=== PATIENT | female | born 1950 | race Caucasian/White ===

== ENCOUNTER 2018-08-19 21:03 | Observation (INO) ==
--- NOTE | 2018-08-19 21:48 | Emergency Department Note ---
Disposition Clinical Impression: Lower extremity edema, Shortness of breath, Noncompliance with medication regimen Congestive heart failure Qualifiers: Heart failure type: unspecified Heart failure chronicity: chronic Qualified Code(s): I50.9 - Heart failure, unspecified Disposition: Admitted As Inpatient Referrals: NONE,PCP [Primary Care Provider] - Jeremiah Marino MD [Non-Partnered Physician] - Forms: ED Satisfaction Letter Time of Disposition: 00:18 SOB HPI - General Chief Complaint: ED Shortness of Breath/Dyspnea Stated Complaint: Bilat Leg Edema Time Seen by Provider: 08/19/18 21:14 Source: family Mode of arrival: wheelchair Limitations: no limitations Nursing Notes Reviewed: Yes Vital Signs Reviewed: Yes - History of Present Illness 68 yo female with past medical history of congestive heart failure and cirrhosis presents to the emergency department with 2 days of worsening leg swelling, abdominal distention and shortness of breath while lying flat. She states that she has not been taking her Lasix at home like she should secondary to difficulty in walking and making it to the bathroom on time. She believes she may be in a heart failure exacerbation at this time. She denies chest pain, shortness of breath while seated, abdominal pain, nausea and vomiting. She admits to weight gain over the past 2 days and thinks it is secondary to fluid. - Related Data Home Medications Medication Instructions Recorded Confirmed [place] Carbonate 300 mg PO DAILY 04/10/15 08/20/18 Citalopram [CeleXA] 20 mg PO DAILY 11/16/16 08/20/18 Spironolactone [Aldactone] 100 mg PO BID 11/16/16 08/20/18 Gabapentin [Neurontin] 300 mg PO HS 03/27/17 08/20/18 Lactulose 15 ml PO BID 03/27/17 08/20/18 Loratadine [Claritin] 10 mg PO DAILY 03/27/17 08/20/18 Omeprazole [PriLOSEC] 40 mg PO BID 03/27/17 08/20/18 Potassium Chloride [Klor-Con 10] 10 meq PO BID 03/27/17 08/20/18 Tramadol HCl [Ultram] 50 mg PO Q72H PRN 03/27/17 08/20/18 clonazePAM [Klonopin] 0.5 mg PO BID PRN 03/27/17 08/20/18 Pioglitazone [Actos] 45 mg PO DAILY 01/29/18 08/20/18 amLODIPine [Norvasc] 5 mg PO DAILY 01/29/18 08/20/18 Nitroglycerin [Nitrostat] 0.4 mg SL AD PRN 02/25/18 08/20/18 Furosemide [Lasix] 60 mg PO BID 05/28/18 08/20/18 Ondansetron ODT [Zofran ODT] 4 mg SL Q6HR PRN 08/20/18 08/20/18 Previous Rx's Medication Instructions Recorded Losartan [Cozaar] 25 mg PO DAILY tablet 02/28/18 Metoprolol [Lopressor] 12.5 mg PO BID tablet 02/28/18 Cyclobenzaprine [Flexeril] 10 mg PO TID PRN #21 tablet 05/28/18 Allergies Allergy/AdvReac Type Severity Reaction Status Date / Time fenofibrate [From Tricor] Allergy See Verified 08/19/18 21:05 Comments naproxen [From Naprosyn] Allergy See Verified 08/19/18 21:05 Comments Penicillins Allergy Hives Verified 08/19/18 21:05 adhesive tape AdvReac Blister Verified 08/19/18 21:05 codeine AdvReac See Verified 08/19/18 21:05 Comments morphine AdvReac Hallucinati Verified 08/19/18 21:05 ng All systems ED: reviewed and negative except as stated. Review of Systems: As Per HPI Constitutional: Denies: fever, chills, weakness Cardiovascular: Reports: dyspnea on exertion, orthopnea, edema. Denies: chest pain, palpitations, syncope Respiratory: Denies: cough, dyspnea, wheezes Gastrointestinal: Denies: abdominal pain, nausea, vomiting, diarrhea Genitourinary: Denies: dysuria, hematuria Musculoskeletal: Reports: back pain Integumentary: Denies: rash Neurological: Denies: headache, weakness, numbness, paresthesias Endocrine: Reports: fatigue Past Medical History - Past Medical History Attestation: Yes The following information was validated with the patient. Source: patient Medical history: Reports: coronary artery disease, diabetes, GERD, hyperlipidemia, hypertension, liver disease, other Surgical history: Reports: appendectomy, , cholecystectomy Psychiatric history: Reports: bipolar, depression BEAM WARPER history: Reports: no BEAM WARPER history - Social History Smoking Status: Former smoker Smokeless Tobacco Status: No Alcohol use: Reports: none Drug use: Reports: none Physical Exam - General Limitations: no limitations General appearance: alert, in no apparent distress - Head Head exam: atraumatic, normocephalic - Eye Eye exam: Present: normal appearance, PERRL, EOMI - ENT ENT exam: normal exam, normal oropharynx - Neck Neck exam: Present: normal inspection. Absent: tenderness - Chest Chest inspection: Present: normal inspection. Absent: tenderness, rash - Respiratory Respiratory exam: Present: normal lung sounds bilaterally - Cardiovascular Cardiovascular exam: Present: regular rate, normal rhythm - Abdominal Exam Abdominal exam: Present: soft, Non-Tender, distention. Absent: guarding, rebound, rigidity - Extremities Exam Extremities exam: Present: pedal edema (1+ pitting edema bilaterally) - Neurological Exam Neurological exam: Present: alert, oriented X3 - Psychiatric Psychiatric exam: Present: normal affect, normal mood - Skin Skin exam: Present: warm, dry, intact Course Vital Signs Temperature 98.2 F 08/19/18 21:05 Pulse Rate 86 08/19/18 21:05 Respiratory Rate 19 08/19/18 21:05 Blood Pressure 188/49 08/19/18 21:05 O2 Sat by Pulse Oximetry 97 08/19/18 21:05 Temperature 98.2 F 08/19/18 21:05 Pulse Rate 81 08/20/18 00:06 Respiratory Rate 22 08/20/18 00:06 Blood Pressure 161/69 08/20/18 00:06 O2 Sat by Pulse Oximetry 98 08/20/18 00:06 Oxygen Delivery Oxygen Delivery Room Air Shortness of Breath/Dyspnea - [facility] Narrative Medical decision making narrative: Patient presents with bilateral leg swelling, abdominal distention, weight gain and orthopnea that has been progressing over the past 2 days and is noncompliant with her Lasix at home. This is likely a CHF exacerbation and the patient will be evaluated with EKG, chest x-ray, basic lab work including troponin and BNP. Her vital signs are stable and her blood pressure is normotensive in the room. She will receive IV lasix for suspected CHF exacerbation with fluid overload. 2315 - pts cxr shows some vascular redistribution without signs of acute heart failure. Her lab work is wnl with a trop <0.03 and a BNP at 153. She has been satting well on room air but she desatted to 87% while walking. The pt will be admitted to the hospital for further diuresis and cardiology workup. - Medical Records Medical records reviewed: Yes I reviewed the patient's medical records. - Lab Data Lab results reviewed: Yes I reviewed the patient's lab results. Result diagrams: 08/19/18 21:52 08/19/18 21:52 Lab Results 08/19/18 08/19/18 08/19/18 Range/Units 21:52 21:52 21:52 WBC 4.2 L (4.3-11.1) K/mcL RBC 3.54 L (3.82-4.97) M/mcL Hgb 12.9 (11.5-15.4) g/dL Hct 37.7 (35.3-44.9) % MCV 106.5 H (83.0-100.0) fL MCH 36.4 H (28.0-33.3) pg MCHC 34.2 (31.6-35.5) g/dL RDW 13.0 (11.5-14.5) % Plt Count 102 L (140-400) K/mcL MPV 10.6 (9.4-12.4) fL Immature Gran % 0.2 (0-4) % Seg Neutrophils % 63.5 % Lymphocytes % 22.4 % Monocytes % 9.6 % Eosinophils % 3.8 % Basophils % 0.5 % Neutrophils # 2.6 (1.6-8.9) K/mcL Lymphocytes # 0.9 (0.6-4.6) K/mcL Monocytes # 0.4 (0.0-1.3) K/mcL Eosinophils # 0.2 (0.0-0.6) K/mcL Basophils # 0.0 (0.0-0.2) K/mcL Sodium 140 (136-145) mEq/L Potassium 3.8 (3.5-5.1) mEq/L Chloride 106 (98-107) mEq/L Carbon Dioxide 25 (23-29) mEq/L BUN 19 (8-23) mg/dL Creatinine 0.62 (0.60-1.20) mg/dL Est GFR ( Amer) > 60 (> 60) Est GFR (Non-Af Amer) > 60 (> 60) BUN/Creatinine Ratio 31 H (6-26) Glucose 136 H (70-105) mg/dL Calculated Osmolality 294 (280-300) Calcium 8.9 (8.6-10.3) mg/dL Total Bilirubin 0.7 (0.3-1.0) mg/dL AST 26 (13-39) Units/L ALT 15 (7-52) Units/L Alkaline Phosphatase 78 (34-104) Units/L Troponin I < 0.03 (< 0.04) ng/mL B-Natriuretic Peptide 153 H (Less than 100) pg/mL Serum Total Protein 7.5 (6.4-8.9) g/dL Albumin 3.3 L (3.5-5.7) g/dL Globulin 4.2 H (2.4-3.5) g/dL Albumin/Globulin Ratio 0.8 L (1.1-2.2) [place] (0.6-1.2) mEq/L // Range/Units 21:52 WBC (4.3-11.1) K/mcL RBC (3.82-4.97) M/mcL Hgb (11.5-15.4) g/dL Hct (35.3-44.9) % MCV (83.0-100.0) fL MCH (28.0-33.3) pg MCHC (31.6-35.5) g/dL RDW (11.5-14.5) % Plt Count (140-400) K/mcL MPV (9.4-12.4) fL Immature Gran % (0-4) % Seg Neutrophils % % Lymphocytes % % Monocytes % % Eosinophils % % Basophils % % Neutrophils # (1.6-8.9) K/mcL Lymphocytes # (0.6-4.6) K/mcL Monocytes # (0.0-1.3) K/mcL Eosinophils # (0.0-0.6) K/mcL Basophils # (0.0-0.2) K/mcL Sodium (136-145) mEq/L Potassium (3.5-5.1) mEq/L Chloride (98-107) mEq/L Carbon Dioxide (23-29) mEq/L BUN (8-23) mg/dL Creatinine (0.60-1.20) mg/dL Est GFR ( Amer) (> 60) Est GFR (Non-Af Amer) (> 60) BUN/Creatinine Ratio (6-26) Glucose (70-105) mg/dL Calculated Osmolality (280-300) Calcium (8.6-10.3) mg/dL Total Bilirubin (0.3-1.0) mg/dL AST (13-39) Units/L ALT (7-52) Units/L Alkaline Phosphatase (34-104) Units/L Troponin I (< 0.04) ng/mL B-Natriuretic Peptide (Less than 100) pg/mL Serum Total Protein (6.4-8.9) g/dL Albumin (3.5-5.7) g/dL Globulin (2.4-3.5) g/dL Albumin/Globulin Ratio (1.1-2.2) [place] 0.1 L (0.6-1.2) mEq/L - Radiology Data Radiology results reviewed: Yes I reviewed the patient's radiology results. - EKG Data EKG attestation: Yes I reviewed and interpreted this EKG. EKG results narrative: EKG obtained at 21:43 on 08/19/2018 Heart rate 80 bpm, NC interval 165, QRS duration 79, QT 375, QTc 433 Sinus rhythm without any ST segment elevations or depressions. No T-wave abnormalities. No acute changes when compared to previous EKG dated 06/29/2018
[2018-08-19 22:11] LABS: Basophils % 0.5 %; Eosinophils # 0.2 K/mcL (0.0-0.6); Eosinophils % 3.8 %; Hematocrit 37.7 % (35.3-44.9); Hemoglobin 12.9 g/dL (11.5-15.4); Immature Granulocytes % 0.2 % (0-4); Lymphocytes # 0.9 K/mcL (0.6-4.6); Lymphocytes % 22.4 %; Mean Corpuscular HGB Conc 34.2 g/dL (31.6-35.5); Mean Corpuscular Hemoglobin 36.4 pg (28.0-33.3); Mean Corpuscular Volume 106.5 fL (83.0-100.0); Mean Platelet Volume 10.6 fL (9.4-12.4); Monocytes # 0.4 K/mcL (0.0-1.3); Monocytes % 9.6 %; Neutrophils # 2.6 K/mcL (1.6-8.9); Platelet Count 102 K/mcL (140-400); Red Blood Count 3.54 M/mcL (3.82-4.97); Segmented Neutrophils % 63.5 %
[2018-08-19] MEDS ORDERED: Furosemide 60 MG in 0.9 % Sodium Chloride 50 ML IV ONE (22:29)
[2018-08-19 22:32] LABS: Alanine Aminotransferase 15 Units/L (7-52); Albumin 3.3 g/dL (3.5-5.7); Albumin/Globulin Ratio 0.8 (1.1-2.2); Alkaline Phosphatase 78 Units/L (34-104); Aspartate Amino Transferase 26 Units/L (13-39); BUN/Creatinine Ratio 31 (6-26); Bilirubin,Total 0.7 mg/dL (0.3-1.0); Blood Urea Nitrogen 19 mg/dL (8-23); Calcium 8.9 mg/dL (8.6-10.3); Carbon Dioxide 25 mEq/L (23-29); Chloride 106 mEq/L (98-107); Globulin 4.2 g/dL (2.4-3.5); Glucose 136 mg/dL (70-105); Osmolality,Calculated 294 (280-300); Potassium 3.8 mEq/L (3.5-5.1); Sodium 140 mEq/L (136-145); Total Protein 7.5 g/dL (6.4-8.9); Troponin I < 0.03 ng/mL (< 0.04); eGFR For Non-African Americans > 60 (> 60)
--- NOTE | 2018-08-19 22:37 | Emergency Department Note ---
Disposition Clinical Impression: Congestive heart failure, Lower extremity edema, Shortness of breath, Noncompliance with medication regimen Disposition: Admitted As Inpatient Condition: Fair Referrals: NONE,PCP [Primary Care Provider] - Forms: ED Satisfaction Letter Time of Disposition: 23:00 General Adult HPI - General Chief complaint: ED Shortness of Breath/Dyspnea Stated complaint: Bilat Leg Edema Time Seen by Provider: 08/19/18 21:14 Source: family Mode of arrival: wheelchair Limitations: no limitations - History of Present Illness Pain Scale: 3 - Related Data Home Medications Medication Instructions Recorded Confirmed [place] Carbonate 300 mg PO DAILY 04/10/15 05/28/18 Citalopram [CeleXA] 20 mg PO DAILY 11/16/16 05/28/18 Spironolactone [Aldactone] 100 mg PO BID 11/16/16 05/28/18 Gabapentin [Neurontin] 300 mg PO HS 03/27/17 05/28/18 Lactulose 15 ml PO BID 03/27/17 05/28/18 Loratadine [Claritin] 10 mg PO DAILY 03/27/17 05/28/18 Omeprazole [PriLOSEC] 40 mg PO BID 03/27/17 05/28/18 Potassium Chloride [Klor-Con 10] 10 meq PO BID 03/27/17 05/28/18 Tramadol HCl [Ultram] 50 mg PO Q72H PRN 03/27/17 05/28/18 clonazePAM [Klonopin] 0.5 mg PO BID PRN 03/27/17 05/28/18 Pioglitazone [Actos] 45 mg PO DAILY 01/29/18 05/28/18 amLODIPine [Norvasc] 5 mg PO DAILY 01/29/18 05/28/18 Nitroglycerin [Nitrostat] 0.4 mg SL AD 02/25/18 05/28/18 Furosemide [Lasix] 60 mg PO BID 05/28/18 05/28/18 Previous Rx's Medication Instructions Recorded Losartan [Cozaar] 25 mg PO DAILY tablet 02/28/18 Metoprolol [Lopressor] 12.5 mg PO BID tablet 02/28/18 Cyclobenzaprine [Flexeril] 10 mg PO TID PRN #21 tablet 05/28/18 Ondansetron ODT [Zofran ODT] 4 mg SL Q6HR #6 tab.rapdis 06/29/18 Allergies Allergy/AdvReac Type Severity Reaction Status Date / Time fenofibrate [From Tricor] Allergy See Verified 08/19/18 21:05 Comments naproxen [From Naprosyn] Allergy See Verified 08/19/18 21:05 Comments Penicillins Allergy Hives Verified 08/19/18 21:05 adhesive tape AdvReac Blister Verified 08/19/18 21:05 codeine AdvReac See Verified 08/19/18 21:05 Comments morphine AdvReac Hallucinati Verified 08/19/18 21:05 ng Constitutional: Denies: fever, chills, weakness Cardiovascular: Reports: dyspnea on exertion, orthopnea, edema. Denies: chest pain, palpitations, syncope Respiratory: Denies: cough, dyspnea, wheezes Gastrointestinal: Denies: abdominal pain, nausea, vomiting, diarrhea Genitourinary: Denies: dysuria, hematuria Musculoskeletal: Reports: back pain Integumentary: Denies: rash Neurological: Denies: headache, weakness, numbness, paresthesias Endocrine: Reports: fatigue Past Medical History - Past Medical History Medical history: Reports: coronary artery disease, diabetes, GERD, hyperlipidemia, hypertension, liver disease, other Surgical history: Reports: appendectomy, , cholecystectomy Psychiatric history: Reports: bipolar, depression PACKAGE PICK UP history: Reports: no PACKAGE PICK UP history - Social History Smoking Status: Former smoker Smokeless Tobacco Status: No Alcohol use: Reports: none Drug use: Reports: none Physical Exam - General Limitations: no limitations General appearance: alert, in no apparent distress Course Vital Signs Temperature 98.2 F 08/19/18 21:05 Pulse Rate 86 08/19/18 21:05 Respiratory Rate 19 08/19/18 21:05 Blood Pressure 188/49 08/19/18 21:05 O2 Sat by Pulse Oximetry 97 08/19/18 21:05 Temperature 98.2 F 08/19/18 21:05 Pulse Rate 77 08/19/18 22:06 Respiratory Rate 22 08/19/18 22:06 Blood Pressure 141/60 08/19/18 22:06 O2 Sat by Pulse Oximetry 100 08/19/18 22:06 Oxygen Delivery Oxygen Delivery Room Air Medical Decision Making - Lab Data Result diagrams: 08/19/18 21:52 08/19/18 21:52 Lab Results 08/19/18 08/19/18 Range/Units 21:52 21:52 WBC 4.2 L (4.3-11.1) K/mcL RBC 3.54 L (3.82-4.97) M/mcL Hgb 12.9 (11.5-15.4) g/dL Hct 37.7 (35.3-44.9) % MCV 106.5 H (83.0-100.0) fL MCH 36.4 H (28.0-33.3) pg MCHC 34.2 (31.6-35.5) g/dL RDW 13.0 (11.5-14.5) % Plt Count 102 L (140-400) K/mcL MPV 10.6 (9.4-12.4) fL Immature Gran % 0.2 (0-4) % Seg Neutrophils % 63.5 % Lymphocytes % 22.4 % Monocytes % 9.6 % Eosinophils % 3.8 % Basophils % 0.5 % Neutrophils # 2.6 (1.6-8.9) K/mcL Lymphocytes # 0.9 (0.6-4.6) K/mcL Monocytes # 0.4 (0.0-1.3) K/mcL Eosinophils # 0.2 (0.0-0.6) K/mcL Basophils # 0.0 (0.0-0.2) K/mcL Sodium 140 (136-145) mEq/L Potassium 3.8 (3.5-5.1) mEq/L Chloride 106 (98-107) mEq/L Carbon Dioxide 25 (23-29) mEq/L BUN 19 (8-23) mg/dL Creatinine 0.62 (0.60-1.20) mg/dL Est GFR ( Amer) > 60 (> 60) Est GFR (Non-Af Amer) > 60 (> 60) BUN/Creatinine Ratio 31 H (6-26) Glucose 136 H (70-105) mg/dL Calculated Osmolality 294 (280-300) Calcium 8.9 (8.6-10.3) mg/dL Total Bilirubin 0.7 (0.3-1.0) mg/dL AST 26 (13-39) Units/L ALT 15 (7-52) Units/L Alkaline Phosphatase 78 (34-104) Units/L Troponin I < 0.03 (< 0.04) ng/mL Serum Total Protein 7.5 (6.4-8.9) g/dL Albumin 3.3 L (3.5-5.7) g/dL Globulin 4.2 H (2.4-3.5) g/dL Albumin/Globulin Ratio 0.8 L (1.1-2.2) Attestation Statement - Attestation Attestation: I have seen this patient with the resident physician, I have personally evaluated this patient. I had reviewed the chart and document dictation by the resident physician and aM in agreement with the information documented by the resident physician. Please see documentation by the resident physician for complete chart including past medical history, family medical history, review of systems, current history and physical and laboratory and imaging studies. I was present for all procedures, provided direct supervision for all pr ocedures, was present for the entirety of all procedures and provided direct guidance during the procedures. Please see documentation by the resident physician for any procedures performed. I have reviewed all interpretations of EKGs, and reviewed all EKGs performed on patient's as well. I have also reviewed reports of imaging as provided by radiology. Patient presented to the emergency department with chief complaint of increasing shortness of breath orthopnea leg pain and leg swelling abdominal distention, like her CHF. She has been noncompliant with her medications because she has chronic problems with her legs and leg weakness after a back surgery and states that she cannot make it to the bathroom in time so she stopped taking her diuretic as well as her lactulose for her liver failure. 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 She states last night she woke up gasping for air sweating, she states she is h aving increasing orthopnea. She states that she feels significant short of breath throughout the day today we will try to walk around at all, she has a walker, states that with this she feels short of breath she has oxygen for at night but states that there is a snake in her garage and her oxygen is out her garage and she cannot go get it because of the snake. She denies fevers or chills. She denies any chest pain the last night when she woke up gasping for air she was diaphoretic and felt like she was being smothered in her chest. The patient denies headache or neck pain. She denies abdominal or bloody stool but states she does feel distended. EKG is normal sinus rhythm no evidence of acute ischemia or dysrhythmia hyperkalemia, no acute change from prior EKG as interpreted by myself. Basic laboratory studies chest x-ray BNP were ordered. She was given IV Lasix. Vital signs are all within acceptable limits without significant hypertension without hypoxia, she does clinically have peripheral edema and some slight JVD, with positive hepatojugular reflex. Lungs however are clear, heart is regular, 3/6 systolic murmur rubs or gallops. Patient has had no recent cardiac evaluation, with increasing exertional shortness of breath, peripheral edema, chest x-ray shows evidence for vascular congestion and redistribution, she will be admitted to the hospital for further evaluation and management of dyspnea, fluid overload, likely related mostly to medication noncompliance.
--- NOTE | 2018-08-20 00:41 | Internal Med History&Physical ---
<Annamarie Hawley E - Last Filed: 08/20/18 02:45> Date of Encounter: 08/20/18 Time of Encounter: 01:15 Internal Medicine - H&P: HPI Chief complaint: Shortness of breath and leg swelling Admitted From: Home Plans for Post Hospital Care: Home History of present illness: Ms. Holt is a 68 year old female with past medical history of cirrhosis, type 2 diabetes, bipolar disorder, CHF. Patient presented to the ED with increased shortness of breath and leg swelling as well as abdominal distention for the la st 2 days. She states that she has trouble making it to the bathroom in time due to chronic leg weakness from failed back surgeries says she has not been taking her Lasix or her lactulose. Last night she woke up gasping for air and felt sweaty and this startled her as she felt that her breathing was getting worse. She has had prior episodes of CHF exacerbation where she has felt the same. She is also noncompliant with her oxygen at night due to her on citrate are being located in her garage and it is in poor working order. Patient denies any abdominal pain, chest pain, dysuria, frequency, urgency, cold-like symptoms. Chest x-ray showed coronary vascular redistribution Patient was given 60 mg of vitamin C Lasix in the ED Labs include white blood cell count of 4.2 creatinine of 0.62, GFR greater than 60, glucose of 136, AST 26, ALP of 15, BNP 153, lithium level 0.1 Social history: Former smoker quit multiple years ago, denies alcohol use, denies drug use Family history: Other diet diabetic and heart disease, mother diabetic and heart disease Past Med Surg Social Fam HX - Past Medical History Medical history: coronary artery disease, diabetes, GERD, hyperlipidemia, hypertension, liver disease, other Additional medical history: neuropathy Psychiatric history: bipolar, depression - Past Surgical History Surgical History: appendectomy, , cholecystectomy Additional surgical history: tubal ligation, kypho L5 02/25/18, CTR bilat x2 - Social History Smoking Status: Former smoker Smokeless Tobacco Status: No Alcohol use: none Drug use: none - Family History Mother Living Status: Father Living Status: Internal Medicine - H&P: Meds [employer] Carbonate 300 mg PO DAILY 04/10/15 [History] Citalopram [CeleXA] 20 mg PO DAILY 11/16/16 [History] Spironolactone [Aldactone] 100 mg PO BID 11/16/16 [History] Gabapentin [Neurontin] 300 mg PO HS 03/27/17 [History] Lactulose 15 ml PO BID 03/27/17 [History] Loratadine [Claritin] 10 mg PO DAILY 03/27/17 [History] Omeprazole [PriLOSEC] 40 mg PO BID 03/27/17 [History] Potassium Chloride [Klor-Con 10] 10 meq PO BID 03/27/17 [History] Tramadol HCl [Ultram] 50 mg PO Q72H PRN 03/27/17 [History] clonazePAM [Klonopin] 0.5 mg PO BID PRN 03/27/17 [History] Pioglitazone [Actos] 45 mg PO DAILY 01/29/18 [History] amLODIPine [Norvasc] 5 mg PO DAILY 01/29/18 [History] Nitroglycerin [Nitrostat] 0.4 mg SL AD PRN 02/25/18 [History] Losartan [Cozaar] 25 mg PO DAILY tablet 02/28/18 [Rx] Metoprolol [Lopressor] 12.5 mg PO BID tablet 02/28/18 [Rx] Cyclobenzaprine [Flexeril] 10 mg PO TID PRN #21 tablet 05/28/18 [Rx] Furosemide [Lasix] 60 mg PO BID 05/28/18 [History] Ondansetron ODT [Zofran ODT] 4 mg SL Q6HR PRN 08/20/18 [History] Allergy/AdvReac Type Severity Reaction Status Date / Time fenofibrate [From Tricor] Allergy See Verified 08/19/18 21:05 Comments naproxen [From Naprosyn] Allergy See Verified 08/19/18 21:05 Comments Penicillins Allergy Hives Verified 08/19/18 21:05 adhesive tape AdvReac Blister Verified 08/19/18 21:05 codeine AdvReac See Verified 08/19/18 21:05 Comments morphine AdvReac Hallucinati Verified 08/19/18 21:05 ng All Systems PM: A 10-system review of systems was performed and is negative for pertinent findings except as documented above in the HPI. - Constitutional Constitutional: weakness (In her legs due to failed back surgeries, chronic), no anorexia, no chills, no fever(s) - EENT Eyes: no change in vision Nose, mouth and throat: no nasal congestion, no sinus pain, no sinus pressure - Cardiovascular Cardiovascular ROS IM: dyspnea on exertion, edema, no chest pain, no palpitations, no syncope - Respiratory Respiratory: cough (Chronic cough), dyspnea, dyspnea on exertion, no excessive phlegm production, no change in phlegm color - Gastrointestinal Gastrointestinal: bloating, no abdominal pain, no constipation, no diarrhea, no nausea, no vomiting - Musculoskeletal Musculoskeletal ROS IM: back pain (Chronic back pain from multiple failed surgeries), muscle weakness (Chronic), no arthralgias - Integumentary Integumentary IM: no new lesions, no pruritus, no rash - Psychiatric Psychiatric: no abnormal sleep pattern, no anxiety, no depression - Constitutional Vitals: Temp Pulse Resp BP Pulse Ox 98.2 F 81 22 161/69 98 08/19/18 21:05 08/20/18 00:06 08/20/18 00:06 08/20/18 00:06 08/20/18 00:06 Exam: General: AAO 3, no acute distress, answers questions appropriately Head: normocephalic, atraumatic Eyes: BENNY, no icterus Mouth: Mucous membranes moist Neck: Trachea midline, no lymphadenopathy Cardio: RRR, no mumurs, rubs, or gallops Respiratory: CTAB, no wheezing, rhonchi, rales Abd: normal bowel sounds, no gaurding or rigidity, patient is distended Extremties: 2+ pitting edema bilaterally, pulses equal bilaterally, warm Skin: warm, dry, intact Internal Med - H&P Results - Labs CBC & Chem 7: 08/19/18 21:52 08/19/18 21:52 Labs: Short CBC 08/19/18 Range/Units 21:52 WBC 4.2 L (4.3-11.1) K/mcL Hgb 12.9 (11.5-15.4) g/dL Hct 37.7 (35.3-44.9) % Plt Count 102 L (140-400) K/mcL Neutrophils # 2.6 (1.6-8.9) K/mcL BMP 08/19/18 21:52 Sodium 140 Potassium 3.8 Chloride 106 Carbon Dioxide 25 BUN 19 Creatinine 0.62 Glucose 136 H Calcium 8.9 Cardiac Enzymes 08/19/18 Range/Units 21:52 Troponin I < 0.03 (< 0.04) ng/mL Liver Function 08/19/18 Range/Units 21:52 Total Bilirubin 0.7 (0.3-1.0) mg/dL AST 26 (13-39) Units/L ALT 15 (7-52) Units/L Alkaline Phosphatase 78 (34-104) Units/L Albumin 3.3 L (3.5-5.7) g/dL - Impressions ITS Impressions Chest X-Ray 08/19/18 21:20 IMPRESSION: Pulmonary vascular redistribution. Otherwise no acute abnormality. D/ / Enzo Bailey MD / Enzo Bailey MD Interpreting Provider: Enzo Bailey MD - Assessment and Plan (1) Acute on chronic respiratory failure with hypoxia Current Visit: Yes Status: Acute Assessment and plan: Likely secondary to CHF, medication non-compliance, chirrosis Plan as below to include 60mg IV lasix daily Restart spironolactone and Lactulose Strict I's and O's Oxygen supplementation as needed Close monitoring of clinical picture (2) Congestive heart failure Current Visit: Yes Status: Acute Assessment and plan: Patient has known history of CHF Is on 60 mg of Lasix twice a day at home but is noncompliant with her medication Patient states in the past she has had issues with swelling and shortness of breath which has not been taking her medications Echocardiogram to assess EF Lasix 60mg IV in morning We will transition to oral Lasix as patient clinical status improves Continue to monitor fluid status I's and O's Qualifiers: Heart failure type: unspecified Heart failure chronicity: chronic Qualified Code(s): I50.9 - Heart failure, unspecified (3) Liver cirrhosis Current Visit: No Status: Chronic Assessment and plan: Patient has known history of liver cirrhosis Patient has told me this is due to fatty liver At one point she is trying to get on a transplant list She has had to have fluid drained from her abdomen twice before Patient noncompliant on her lactulose We will restart patient on her lactulose and spironolactone Will consider abdominal imaging if distention does not improve Qualifiers: Hepatic cirrhosis type: unspecified hepatic cirrhosis Ascites presence: unspecified Qualified Code(s): K74.60 - Unspecified cirrhosis of liver (4) Bipolar disorder Current Visit: No Status: Chronic Assessment and plan: Patient has known history of bipolar disorder for which she is on lithium, Celexa, Klonopin We will restart patient's home medications Qualifiers: Active/Remission status: remission status unspecified Qualified Code(s): F31.9 - Bipolar disorder, unspecified (5) Lower extremity edema Current Visit: Yes Status: Acute Assessment and plan: Likely secondary to CHF exacerbation Plan as above (6) Shortness of breath Current Visit: Yes Status: Acute Assessment and plan: Likely secondary to fluid overload Plan as above Oxygen supplementation as needed (7) Noncompliance with medication regimen Current Visit: Yes Status: Acute Assessment and plan: Patient is noncompliant with her Lasix and lactulose She states this is because she has trouble getting up and getting to the bathroom in time Septic patient about the possible use of bedside commode Patient does have pets side commode at home but it is in her garage Patient will have family member get this out of the garage for her (8) Diabetes mellitus Current Visit: No Status: Chronic Assessment and plan: Patient is a known type II diabetic on pioglitazone Low-dose sliding scale insulin Hold home medications Accu-Cheks before meals at bedtime Continue to monitor and increase sliding scale as needed Qualifiers: Diabetes mellitus type: type 2 Diabetes mellitus care home insulin use: without care home use Diabetes mellitus complication status: with unspecified complications Qualified Code(s): E11.8 - Type 2 diabetes mellitus with unspecified complications (9) DVT prophylaxis Current Visit: No Status: Acute Assessment and plan: scds - Time Spent With Patient Total time spent is greater than 50% in coordination of care (as documented) at patient's floor/unit and/or counseling patient: <Rishabh Hernandez - Last Filed: 08/20/18 03:50> Date of Encounter: 08/20/18 Internal Medicine - H&P: HPI History of present illness: Ms. Holt is a 68 year old female All Systems PM: A 10-system review of systems was performed and is negative for pertinent findings except as documented above in the HPI. - Constitutional Vitals: Temp Pulse Resp BP Pulse Ox 97.8 F 82 16 171/80 96 08/20/18 01:12 08/20/18 01:12 08/20/18 01:12 08/20/18 01:12 08/20/18 01:12 Internal Med - H&P Results - Labs CBC & Chem 7: 08/19/18 21:52 08/19/18 21:52 Labs: Short CBC 08/19/18 Range/Units 21:52 WBC 4.2 L (4.3-11.1) K/mcL Hgb 12.9 (11.5-15.4) g/dL Hct 37.7 (35.3-44.9) % Plt Count 102 L (140-400) K/mcL Neutrophils # 2.6 (1.6-8.9) K/mcL BMP 08/19/18 21:52 Sodium 140 Potassium 3.8 Chloride 106 Carbon Dioxide 25 BUN 19 Creatinine 0.62 Glucose 136 H Calcium 8.9 Cardiac Enzymes 08/19/18 Range/Units 21:52 Troponin I < 0.03 (< 0.04) ng/mL Liver Function 08/19/18 Range/Units 21:52 Total Bilirubin 0.7 (0.3-1.0) mg/dL AST 26 (13-39) Units/L ALT 15 (7-52) Units/L Alkaline Phosphatase 78 (34-104) Units/L Albumin 3.3 L (3.5-5.7) g/dL - Impressions ITS Impressions Chest X-Ray 08/19/18 21:20 IMPRESSION: Pulmonary vascular redistribution. Otherwise no acute abnormality. D/ / Enzo Bailey MD / Enzo Bailey MD Interpreting Provider: Enzo Bailey MD - Time Spent With Patient Total time spent is greater than 50% in coordination of care (as documented) at patient's floor/unit and/or counseling patient: - Attending Attestation I saw and evaluated the patient. I reviewed the residents note, performed my own physical examination and agree with findings and plan as documented in the residents note. Patient seen and examined on 08/20/18. Patient presented with acute hypoxic respiratory failure secondary to CHF exacerbation and medication non-compliance. Patient feeling better now, started on lasix in the ER. Patient has history of cirrhosis as well, states that she does have increased fluid in her abdomen as well. We can consider an abdominal ultrasound/CT to further quantify. Continue lasix, monitor renal function. Patient also has a snake in her garage preventing her from getting to her home oxygen. Continue to monitor, oxygen supplementation as needed.
[2018-08-20] MEDS ORDERED: Naloxone 0.4 MG/ML INJ IVP PRN (01:56)
[2018-08-20] MEDS ORDERED: Dextrose Gel 15 GM/37.5 ML TUBE PO PRN ×2 (01:56)
[2018-08-20] MEDS ORDERED: *HR* Dextrose 50 % in Water (Syg) 50 ML SYRINGE IVP PRN (01:56)
[2018-08-20] MEDS ORDERED: D5% in Water 1,000 ML IVC PRN (01:56)
[2018-08-20] MEDS ORDERED: clonazePAM 0.5 MG TABLET PO PRN (02:42)
[2018-08-20] MEDS: traMADol 50 MG TABLET PO PRN (04:29)
[2018-08-20] MEDS ORDERED: *HR* Heparin 5,000 UNIT/ML VIAL SQ SCH (06:00)
[2018-08-20 07:04] LABS: Basophils % 0.5 %; Hematocrit 36.4 % (35.3-44.9); Mean Platelet Volume 11.3 fL (9.4-12.4)
[2018-08-20 07:06] LABS: Eosinophils # 0.2 K/mcL (0.0-0.6); Eosinophils % 4.3 %; Hemoglobin 12.4 g/dL (11.5-15.4); Immature Granulocytes % 0.3 % (0-4); Immature Platelets 3.4 % (1.1-6.1); Lymphocytes # 0.9 K/mcL (0.6-4.6); Lymphocytes % 22.6 %; Mean Corpuscular HGB Conc 34.1 g/dL (31.6-35.5); Mean Corpuscular Hemoglobin 36.3 pg (28.0-33.3); Mean Corpuscular Volume 106.4 fL (83.0-100.0); Monocytes # 0.5 K/mcL (0.0-1.3); Monocytes % 11.3 %; Neutrophils # 2.4 K/mcL (1.6-8.9); Red Blood Count 3.42 M/mcL (3.82-4.97)
[2018-08-20 07:13] LABS: Platelet Count 88 K/mcL (140-400)
[2018-08-20 07:24] LABS: BUN/Creatinine Ratio 26 (6-26); Blood Urea Nitrogen 18 mg/dL (8-23); Calcium 9.3 mg/dL (8.6-10.3); Carbon Dioxide 26 mEq/L (23-29); Chloride 105 mEq/L (98-107); Glucose 118 mg/dL (70-105); Magnesium 1.8 mg/dL (1.6-2.6); Osmolality,Calculated 289 (280-300); Phosphorous 3.8 mg/dL (2.7-4.5); Potassium 3.3 mEq/L (3.5-5.1); Sodium 138 mEq/L (136-145); eGFR For Non-African Americans > 60 (> 60)
[2018-08-20] MEDS ORDERED: Ondansetron ODT 4 MG TAB.RAPDIS SL PRN (07:40)
[2018-08-20] MEDS ORDERED: Nitroglycerin 0.4 MG TAB.SUBL SL PRN (07:40)
[2018-08-20] MEDS: Lithium Carbonate 300 MG CAPSULE PO SCH (08:22)
[2018-08-20] MEDS: Lactulose Oral Soln 20 GM/30 ML UDC RC SCH ×2 (08:22→20:40)
[2018-08-20] MEDS: Furosemide 40 MG/4 ML VIAL IVP SCH ×2 (08:23→17:17)
[2018-08-20] MEDS: Loratadine 10 MG TABLET PO SCH (08:26)
[2018-08-20] MEDS: amLODIPine 5 MG TABLET PO SCH (08:26)
[2018-08-20] MEDS: Insulin LISPRO 300 UNITS/3 ML VIAL SQ SCH ×4 (08:27→20:14)
--- NOTE | 2018-08-20 08:42 | Event Note ---
Date of Encounter: 08/20/18 Time of Encounter: 08:40 68 year old female with known history of CHF, and compliant with treatment presented with leg swelling and shortness of breath. Echocardiogram was ordered, results is pending currently. Home Lasix has been changed to IV. Continue monitoring volume status.
[2018-08-20] MEDS ORDERED: Furosemide 40 MG/4 ML VIAL IVP SCH (09:00)
--- NOTE | 2018-08-20 11:01 | Electrocardiograph Report ---
[address] [address] Test Date: 2018-08-19 Pat Name: Bisi Holt Department: [id number] Room: 3B37 Gender: F [employer]: : 1950 Requested By: Lula Erazo Order Number: [id number] Reading MD: Long Denton Measurements Intervals [place] Rate: 80 P: 66 UT: 165 QRS: 54 QRSD: 79 T: 48 QT: 375 QTc: 433 Interpretive Statements Sinus rhythm Electronically Signed On 08-20-2018 10:59:40 EDT by Long Denton
[2018-08-20] MEDS: Gabapentin 300 MG CAPSULE PO SCH (20:40)
[2018-08-21] MEDS: traMADol 50 MG TABLET PO PRN (01:55)
[2018-08-21] MEDS: Lactulose Oral Soln 20 GM/30 ML UDC RC SCH (08:06)
[2018-08-21] MEDS: amLODIPine 5 MG TABLET PO SCH (08:07)
[2018-08-21] MEDS: Lithium Carbonate 300 MG CAPSULE PO SCH (08:07)
[2018-08-21] MEDS: Loratadine 10 MG TABLET PO SCH (08:07)
[2018-08-21] MEDS: Insulin LISPRO 300 UNITS/3 ML VIAL SQ SCH ×4 (08:08→23:17)
[2018-08-21] MEDS: Furosemide 40 MG/4 ML VIAL IVP SCH ×2 (08:08→16:41)
--- NOTE | 2018-08-21 10:14 | Internal Med Progress Note ---
Hospitalist Progress Note - Encounter Date of Encounter: 08/21/18 Time of Encounter: 10:14 - Subjective Interval History: Patient was seen examined at bedside denies any pain or discomfort, patient admits to not taking medication because she has trouble making it to the BR. PT OT eval cont with Lasix lactulose - Exam Vitals: Temp Pulse Resp BP Pulse Ox 97.6 F 61 18 116/70 94 08/21/18 06:56 08/21/18 06:56 08/21/18 06:56 08/21/18 06:56 08/21/18 06:56 Exam: General: AAO 3, no acute distress, answers questions appropriately Head: normocephalic, atraumatic Eyes: BENNY, no icterus Mouth: Mucous membranes moist Neck: Trachea midline, no lymphadenopathy Cardio: RRR, no mumurs, rubs, or gallops Respiratory: CTAB, no wheezing, rhonchi, rales Abd: normal bowel sounds, no gaurding or rigidity, patient is distended Extremties: 2+ pitting edema bilaterally, pulses equal bilaterally, warm Skin: warm, dry, intact - Assessment and Plan (1) Acute on chronic respiratory failure with hypoxia Current Visit: Yes Status: Acute Assessment and Plan: Likely secondary to CHF, medication non-compliance, chirrosis Plan as below to include 60mg IV lasix daily Restart spironolactone and Lactulose Strict I's and O's Oxygen supplementation as needed Close monitoring of clinical picture (2) Congestive heart failure Current Visit: Yes Status: Acute Assessment and Plan: Patient has known history of CHF Is on 60 mg of Lasix twice a day at home but is noncompliant with her medication Patient states in the past she has had issues with swelling and shortness of breath which has not been taking her medications Echocardiogram to assess EF Lasix 60mg IV in morning We will transition to oral Lasix as patient clinical status improves Continue to monitor fluid status I's and O's (3) Lower extremity edema Current Visit: Yes Status: Acute Assessment and Plan: Likely secondary to CHF exacerbation Plan as above (4) Noncompliance with medication regimen Current Visit: Yes Status: Acute Assessment and Plan: Patient is noncompliant with her Lasix and lactulose She states this is because she has trouble getting up and getting to the bathroom in time complains of back pain- Pt/OT consult (5) Shortness of breath Current Visit: Yes Status: Acute Assessment and Plan: Likely secondary to fluid overload Plan as above Oxygen supplementation as needed (6) DVT prophylaxis Current Visit: No Status: Acute Assessment and Plan: SCD (7) Diabetes mellitus type 2 in nonobese Current Visit: No Status: Acute Assessment and Plan: Patient is a known type II diabetic on pioglitazone Low-dose sliding scale insulin Hold home medications Accu-Cheks before meals at bedtime Continue to monitor and increase sliding scale as needed (8) Bipolar disorder Current Visit: No Status: Chronic Assessment and Plan: Patient has known history of bipolar disorder for which she is on lithium, Celexa, Klonopin We will restart patient's home medications (9) Liver cirrhosis Current Visit: No Status: Chronic Assessment and Plan: Patient has known history of liver cirrhosis Patient has told me this is due to fatty liver At one point she is trying to get on a transplant list She has had to have fluid drained from her abdomen twice before Patient noncompliant on her lactulose We will restart patient on her lactulose and spironolactone Will consider abdominal imaging if distention does not improve- con to monitor - Time Spent with Patient Total time spent is greater than 50% in coordination of care (as documented) at patient's floor/unit and/or counseling patient: Internal Medicine: Result - Labs CBC & Chem 7: 08/21/18 11:05 08/21/18 11:05 Consult Discharge Plan - Plan Additional Instructions: Call [facility] when you get home to have them come look at oxygen concentrator #[phone] Referrals: Carina Knapp MD [Partnered Physician] - 08/29/18 3:30 pm _ (2) Congestive heart failure Qualifiers: Heart failure type: unspecified Heart failure chronicity: chronic Qualified Code(s): I50.9 - Heart failure, unspecified (8) Bipolar disorder Qualifiers: Active/Remission status: remission status unspecified Qualified Code(s): F31.9 - Bipolar disorder, unspecified (9) Liver cirrhosis Qualifiers: Hepatic cirrhosis type: unspecified hepatic cirrhosis Ascites presence: unspecified Qualified Code(s): K74.60 - Unspecified cirrhosis of liver
[2018-08-21 11:21] LABS: Basophils % 0.9 %; Eosinophils # 0.2 K/mcL (0.0-0.6); Eosinophils % 4.4 %; Hematocrit 38.3 % (35.3-44.9); Hemoglobin 13.3 g/dL (11.5-15.4); Immature Granulocytes % 0.4 % (0-4); Lymphocytes # 0.8 K/mcL (0.6-4.6); Lymphocytes % 16.6 %; Mean Corpuscular HGB Conc 34.7 g/dL (31.6-35.5); Mean Corpuscular Hemoglobin 36.8 pg (28.0-33.3); Mean Corpuscular Volume 106.1 fL (83.0-100.0); Mean Platelet Volume 10.9 fL (9.4-12.4); Monocytes # 0.5 K/mcL (0.0-1.3); Monocytes % 10.8 %; Platelet Count 106 K/mcL (140-400); Red Blood Count 3.61 M/mcL (3.82-4.97); Segmented Neutrophils % 66.9 %
[2018-08-21 11:45] LABS: BUN/Creatinine Ratio 26 (6-26); Blood Urea Nitrogen 22 mg/dL (8-23); Calcium 9.4 mg/dL (8.6-10.3); Carbon Dioxide 28 mEq/L (23-29); Chloride 101 mEq/L (98-107); Glucose 140 mg/dL (70-105); Osmolality,Calculated 286 (280-300); Potassium 3.8 mEq/L (3.5-5.1); Sodium 135 mEq/L (136-145); eGFR For Non-African Americans > 60 (> 60)
[2018-08-21] MEDS: Gabapentin 300 MG CAPSULE PO SCH (20:26)
[2018-08-21] MEDS: Lactulose Oral Soln 20 GM/30 ML UDC PO SCH (20:26)
[2018-08-22] MEDS: Insulin LISPRO 300 UNITS/3 ML VIAL SQ SCH ×2 (07:29→12:03)
[2018-08-22] MEDS: Furosemide 40 MG/4 ML VIAL IVP SCH (09:20)
[2018-08-22] MEDS: Lactulose Oral Soln 20 GM/30 ML UDC PO SCH (09:22)
[2018-08-22] MEDS: amLODIPine 5 MG TABLET PO SCH (09:22)
[2018-08-22] MEDS: Loratadine 10 MG TABLET PO SCH (09:23)
[2018-08-22] MEDS: Lithium Carbonate 300 MG CAPSULE PO SCH (09:33)
[2018-08-22 11:22] VITALS: BP 118/71
[2018-08-22 12:41] LABS: BUN/Creatinine Ratio 32 (6-26); Blood Urea Nitrogen 25 mg/dL (8-23); Calcium 9.4 mg/dL (8.6-10.3); Carbon Dioxide 26 mEq/L (23-29); Chloride 99 mEq/L (98-107); Glucose 158 mg/dL (70-105); Osmolality,Calculated 284 (280-300); Sodium 133 mEq/L (136-145); eGFR For Non-African Americans > 60 (> 60)
--- NOTE | 2018-08-22 14:04 | Discharge Summary ---
- NOTES TO OUTPATIENT PROVIDER Notes to Outpatient Provider: Has been noncompliant with medications presented with fluid overload and hypoxia patient was diuresed we will need to monitor lab work as outpatient Date of Encounter: 08/22/18 Time of Encounter: 13:59 - Discharge Diagnosis (1) Acute on chronic respiratory failure with hypoxia Priority: Primary Status: Acute (2) Congestive heart failure Priority: Secondary Status: Acute Qualifiers: Heart failure type: diastolic Heart failure chronicity: chronic Qualified Code(s): I50.32 - Chronic diastolic (congestive) heart failure (3) Lower extremity edema Priority: Secondary Status: Acute (4) Noncompliance with medication regimen Priority: Secondary Status: Acute (5) Shortness of breath Priority: Secondary Status: Acute (6) Diabetes mellitus type 2 in nonobese Priority: Secondary Status: Acute (7) Bipolar disorder Priority: Secondary Status: Chronic Qualifiers: Active/Remission status: remission status unspecified Qualified Code(s): F31.9 - Bipolar disorder, unspecified (8) Liver cirrhosis Priority: Secondary Status: Chronic Qualifiers: Hepatic cirrhosis type: unspecified hepatic cirrhosis Ascites presence: unspecified Qualified Code(s): K74.60 - Unspecified cirrhosis of liver Hospital course: Ms. Holt is a 68 year old female past medical history of cirrhosis type 2 diabetes bipolar CHF. Patient presented to [facility] ED after complaints of increased shortness of breath and lower extremity swelling as well as abdominal distention which had been occurring 2 days prior to presentation. Patient states that she has been having difficulty making it to the bathroom due to chronic leg weakness and pain she has not been taking her Lasix her lactulose. She is also been noncompliant with oxygen-oxygen concentrator is in and is not working. Chest x-ray did show coronary vascular congestion she was given IV Lasix and diuresed as well as placed back on her home lactulose. Patient's respiratory status did not improve swelling decreased and abdomen as well as lower extremities. She was evaluated by PT and OT with no pain. We did have a discussion concerning medicine compliance as well as she does have a bedside commode which she needs to keep close to her during the day. As well as she has oxygen available. data center manager set up oxygen for the patient upon discharge as well as home health services. Currently she is hemodynamically stable and is ready for discharge. - Time Spent with Patient Total time spent providing and/or coordinating discharge services: - Discharge Medications Prescriptions: New Spironolactone [Aldactone] 100 mg PO BID #60 tablet Metoprolol [Lopressor] 12.5 mg PO BID tablet Continued Potassium Chloride [Klor-Con 10] 10 meq PO BID Gabapentin [Neurontin] 300 mg PO HS Loratadine [Claritin] 10 mg PO DAILY Omeprazole [PriLOSEC] 40 mg PO BID Tramadol HCl [Ultram] 100 mg PO TID PRN PRN Reason: Pain Nitroglycerin [Nitrostat] 0.4 mg SL AD PRN PRN Reason: Chest Pain Ondansetron ODT [Zofran ODT] 4 mg SL Q6HR PRN PRN Reason: Nausea Losartan Potassium 25 mg PO QAM OxyCODONE Immed Rel [Roxicodone 10 MG] 10 - 20 mg PO Q6H PRN PRN Reason: Pain Lactulose [Enulose] 20 gm PO BID #1800 ml Furosemide [Lasix] 60 mg PO BID #180 tablet [place] Carbonate 300 mg PO DAILY amLODIPine [Norvasc] 5 mg PO DAILY Pioglitazone [Actos] 45 mg PO DAILY Cyclobenzaprine [Flexeril] 10 mg PO TID PRN #21 tablet PRN Reason: Pain Discontinued Spironolactone [Aldactone] 100 mg PO BID No Action clonazePAM [Klonopin] 0.5 mg PO BID PRN PRN Reason: Anxiety Metoprolol [Lopressor] 25 mg PO BID Tizanidine HCl 4 mg PO TID PRN PRN Reason: Muscle Spasm Citalopram [CeleXA] 20 mg PO DAILY Home Medications: [place] Carbonate 300 mg PO DAILY 04/10/15 [History] Citalopram [CeleXA] 20 mg PO DAILY 11/16/16 [History] Gabapentin [Neurontin] 300 mg PO HS 03/27/17 [History] Loratadine [Claritin] 10 mg PO DAILY 03/27/17 [History] Omeprazole [PriLOSEC] 40 mg PO BID 03/27/17 [History] Potassium Chloride [Klor-Con 10] 10 meq PO BID 03/27/17 [History] Tramadol HCl [Ultram] 100 mg PO TID PRN 03/27/17 [History] clonazePAM [Klonopin] 0.5 mg PO BID PRN 03/27/17 [History] Pioglitazone [Actos] 45 mg PO DAILY 01/29/18 [History] amLODIPine [Norvasc] 5 mg PO DAILY 01/29/18 [History] Nitroglycerin [Nitrostat] 0.4 mg SL AD PRN 02/25/18 [History] Cyclobenzaprine [Flexeril] 10 mg PO TID PRN #21 tablet 05/28/18 [Rx] Losartan Potassium 25 mg PO QAM 08/20/18 [History] Metoprolol [Lopressor] 25 mg PO BID 08/20/18 [History] Ondansetron ODT [Zofran ODT] 4 mg SL Q6HR PRN 08/20/18 [History] OxyCODONE Immed Rel [Roxicodone 10 MG] 10 - 20 mg PO Q6H PRN 08/20/18 [History] Tizanidine HCl 4 mg PO TID PRN 08/20/18 [History] Furosemide [Lasix] 60 mg PO BID #180 tablet 08/22/18 [Rx] Lactulose [Enulose] 20 gm PO BID #1800 ml 08/22/18 [Rx] Metoprolol [Lopressor] 12.5 mg PO BID tablet 08/22/18 [Rx] Spironolactone [Aldactone] 100 mg PO BID #60 tablet 08/22/18 [Rx] Allergies/Adverse Reactions: Allergy/AdvReac Type Severity Reaction Status Date / Time fenofibrate [From Tricor] Allergy See Verified 08/19/18 21:05 Comments naproxen [From Naprosyn] Allergy See Verified 08/19/18 21:05 Comments Penicillins Allergy Hives Verified 08/19/18 21:05 adhesive tape AdvReac Blister Verified 08/19/18 21:05 codeine AdvReac See Verified 08/19/18 21:05 Comments morphine AdvReac Hallucinati Verified 08/19/18 21:05 ng Date of admission: 08/21/18 19:55 Primary care physician: PCP NONE Consults: 08/20/18 08:33 Consult to Nurse Navigator [CONS] Routine Comment: CHF 08/21/18 10:04 Consult to Physical Therapy [CONS] Routine Comment: Evaluate, develop and implement POC Reason for Consult: frequent falls weakness Does patient have active BEDREST order?: No Is patient medically & hemodynamically stable?: Yes Patient assessed for mobility or mobilized this visit?: No Discharging clinician: Janett Chanel Anticipated date of discharge: 08/22/18 - Constitutional Vitals: Temp Pulse Resp BP Pulse Ox 97.7 F 62 16 118/71 95 08/22/18 11:17 08/22/18 11:17 08/22/18 11:17 08/22/18 11:17 08/22/18 11:17 Exam: Skin: Free of rash and discoloration. Eyes: Sclera is white. There is no discharge from eyes. ENMT: Oral/pharyngeal mucosa is normal in appearance. There is no discharge from nose or ears. Respiratory: Normal breath sounds with no crackles and wheezes bilaterally. CV: Heart is regular with no gallop or murmur. GI: Abdomen is obese soft with no palpable mass or visceromegaly. : There is no tenderness in patient's flanks bilaterally. Neuro exam: He has good strength in upper and lower extremities. He has normal eye movements. Psychiatric: He has normal affect. His thought process is appropriate to the situation. - Patient Status Disposition: Home Health Service Condition: Good Functional capacity at discharge: uses cane/walker Overall status at discharge: patient is back to baseline - Discharge Instructions Instructions: Heart Failure (DC), Acute Respiratory Distress Syndrome (DC) Follow Up With: Carina Knapp MD [Partnered Physician] - 08/29/18 3:30 pm Gilbert Prado Jr, MD [Partnered Physician] - 09/13/18 10:00 am Additional Instructions: Call [facility] when you get home to have them come look at oxygen concentrator #[phone] Home Health has been set up through [facility]. They will contact you with a date and time for admission. If you need to contact them please call #[phone] or #[phone] Follow-up appointments: If there is not an appointment listed below, please call your physician and schedule a follow-up appointment. If you have congestive heart failure and your symptoms return, make an appointment with your physician. Medication List: Carry an up to date list of medications you are taking at all time. We have given you an updated medication list including any new medications that you have been prescribed. Please provide that list to your primary provider Symptoms: If your condition changes or you experience any of the following symptoms, notify your physician immediately: Unusual or worsening pain, fever, persistent nausea and vomiting, bleeding, increase in swelling (especially in your legs), sudden weight gain, extreme dizziness, chest pain, increased drainage or redness from a wound or incision. Go to the emergency department if you experience a problem with breathing. Weights: If you have a history of swelling or shortness of breath, weigh yourself daily and notify your physician if you have a weight gain of two or more pounds in one day or 5 or more pounds in a week. If you experience any of the warning signs for stroke: Sudden numbness or weakness of the face, arm or leg; especially on one side of the body, sudden confusion, trouble speaking or understanding, sudden trouble seeing in one or both eyes, sudden trouble walking, dizziness, loss of balance or coordination, sudden sever headache with no cause; Call 911 or go to the emergency room. Stroke is a medical emergency. Some risk factors for stroke: Age, cigarette smoking, diabetes, excessive alcohol consumption, family history, high blood pressure, overweight, physical inactivity, prior stroke, heart attack, diagnosis of carotid artery stenosis or other artery disease. If you smoke, STOP: Smoking or tobacco use significantly increases your risk of heart and lung disease. Your chance of disease greatly increases if you continue to smoke. For more information, call the [place] tobacco quit line for smoking cessation 2-909-WASY-NOW ( ) - Diet and Activity Activity: as per physical therapy, increase activity as tolerated, wear oxygen at all times Diet: low salt diet
--- NOTE | 2018-08-22 14:38 | Physician Discharge Referral ---
Home Health/Hosp Referral Info Transfer to: Home Health Attending Provider: Janett Chanel Provider in Charge Post Discharge: PCP - Diagnosis (1) Acute on chronic respiratory failure with hypoxia Priority: Primary Status: Acute (2) Congestive heart failure Priority: Secondary Status: Acute (3) Lower extremity edema Priority: Secondary Status: Acute (4) Noncompliance with medication regimen Priority: Secondary Status: Acute (5) Shortness of breath Priority: Secondary Status: Acute (6) Diabetes mellitus type 2 in nonobese Priority: Secondary Status: Acute (7) Bipolar disorder Priority: Secondary Status: Chronic (8) Liver cirrhosis Priority: Secondary Status: Chronic - Respiratory Orders Oxygen / L per min Smoking Cessation: Smoking cessation has been advised. For more information, call the [place] Tobacco Quit Line at 6-704-TGIK-NOW. - Diet/Nutrition Diet/Nutrition Orders: No Added Salt (TAN), Cardiac - Activity Activity Orders: Up ad alexa - Services Needed Following services are medically necessary services: Nursing, Physical Therapy Other Treatments: chem7, lithium level, hepatic panel Tu 08/27/2018 - Transfer Medications Prescriptions: Spironolactone [Aldactone] 100 mg PO BID #60 tablet Lactulose [Enulose] 20 gm PO BID #1800 ml Furosemide [Lasix] 60 mg PO BID #180 tablet Home Medications: [place] Carbonate 300 mg PO DAILY 04/10/15 [History] Citalopram [CeleXA] 20 mg PO DAILY 11/16/16 [History] Gabapentin [Neurontin] 300 mg PO HS 03/27/17 [History] Loratadine [Claritin] 10 mg PO DAILY 03/27/17 [History] Omeprazole [PriLOSEC] 40 mg PO BID 03/27/17 [History] Potassium Chloride [Klor-Con 10] 10 meq PO BID 03/27/17 [History] Tramadol HCl [Ultram] 100 mg PO TID PRN 03/27/17 [History] clonazePAM [Klonopin] 0.5 mg PO BID PRN 03/27/17 [History] Pioglitazone [Actos] 45 mg PO DAILY 01/29/18 [History] amLODIPine [Norvasc] 5 mg PO DAILY 01/29/18 [History] Nitroglycerin [Nitrostat] 0.4 mg SL AD PRN 02/25/18 [History] Cyclobenzaprine [Flexeril] 10 mg PO TID PRN #21 tablet 05/28/18 [Rx] Losartan Potassium 25 mg PO QAM 08/20/18 [History] Metoprolol [Lopressor] 25 mg PO BID 08/20/18 [History] Ondansetron ODT [Zofran ODT] 4 mg SL Q6HR PRN 08/20/18 [History] OxyCODONE Immed Rel [Roxicodone 10 MG] 10 - 20 mg PO Q6H PRN 08/20/18 [History] Tizanidine HCl 4 mg PO TID PRN 08/20/18 [History] Furosemide [Lasix] 60 mg PO BID #180 tablet 08/22/18 [Rx] Lactulose [Enulose] 20 gm PO BID #1800 ml 08/22/18 [Rx] Metoprolol [Lopressor] 12.5 mg PO BID tablet 08/22/18 [Rx] Spironolactone [Aldactone] 100 mg PO BID #60 tablet 08/22/18 [Rx] Allergies/Adverse Reactions: Allergy/AdvReac Type Severity Reaction Status Date / Time fenofibrate [From Tricor] Allergy See Verified 08/19/18 21:05 Comments naproxen [From Naprosyn] Allergy See Verified 08/19/18 21:05 Comments Penicillins Allergy Hives Verified 08/19/18 21:05 adhesive tape AdvReac Blister Verified 08/19/18 21:05 codeine AdvReac See Verified 08/19/18 21:05 Comments morphine AdvReac Hallucinati Verified 08/19/18 21:05 ng Certification: Further, I certify that my clinical findings support that this patient is homebound (i.e. absences from home require considerable and taxing effort and ar e for medical reasons or restoration services or infrequently or short duration when for other reasons) because: Homebound Reason: Severity of cardiac or pulmonary status limits activity tolerance Attestation: My signature below is to certify that this patient is under my care and that I, or nurse practitioner, or a physician's fast food sales assistant working with me, has a [id number] encounter with this patient.
== END 2018-08-22 16:31 | disposition home health service (06) ==
LOC: 3BNU 21:03 → EMEROOARM 21:03 → 3BNU 08-20 00:52
PROVIDERS: ADMIT Family Medicine; ATTEND Family Medicine

== ENCOUNTER 2019-03-29 13:55 | Inpatient (IN) ==
[2019-03-29 14:47] LABS: Bilirubin,Urine Negative (Negative); Blood,Urine Negative (Negative); Clarity,Urine Clear (Clear); Color,Urine Yellow (Yellow); Glucose,Urine (UA) Normal (Normal); Ketones,Urine Negative (Negative); Leukocyte Esterase,Urine Negative (Negative); Nitrite,Urine Negative (Negative); Protein,Urine Trace mg/dL (Neg-Trace); Specific Gravity,Urine 1.024 (1.010-1.025); Urobilinogen,Urine Normal (Normal)
[2019-03-29 16:22] LABS: Basophils % 0.5 %; Eosinophils # 0.2 K/mcL (0.0-0.6); Eosinophils % 3.8 %; Hematocrit 38.7 % (35.3-44.9); Hemoglobin 12.5 g/dL (11.5-15.4); Immature Granulocytes % 0.5 % (0-4); Lymphocytes # 0.7 K/mcL (0.6-4.6); Lymphocytes % 17.5 %; Mean Corpuscular HGB Conc 32.3 g/dL (31.6-35.5); Mean Corpuscular Hemoglobin 36.3 pg (28.0-33.3); Mean Corpuscular Volume 112.5 fL (83.0-100.0); Monocytes # 0.5 K/mcL (0.0-1.3); Monocytes % 11.8 %; Neutrophils # 2.8 K/mcL (1.6-8.9); Platelet Count 106 K/mcL (140-400); Red Blood Count 3.44 M/mcL (3.82-4.97); Red Cell Distribution Width 13.8 % (11.5-14.5); Segmented Neutrophils % 65.9 %; White Blood Count 4.2 K/mcL (4.3-11.1)
[2019-03-29 16:30] LABS: BUN/Creatinine Ratio 26 (6-26); Blood Urea Nitrogen 18 mg/dL (8-23); Calcium 8.7 mg/dL (8.6-10.3); Carbon Dioxide 23 mEq/L (23-29); Chloride 107 mEq/L (98-107); Glucose 100 mg/dL (70-105); Osmolality,Calculated 280 (280-300); Sodium 134 mEq/L (136-145); eGFR For African Americans > 60 (> 60); eGFR For Non-African Americans > 60 (> 60)
[2019-03-29 16:31] LABS: Troponin I < 0.03 ng/mL (< 0.04)
[2019-03-29] MEDS ORDERED: Isovue-370 500 ML BOTTLE IVP ONE (16:46)
[2019-03-29] MEDS ORDERED: *HR* LORazepam 2 MG/ML VIAL IVP ONE (16:59)
[2019-03-29 17:05] LABS: Anisocytosis 1+ (Not Present); Macrocytosis Present (Not Present); Platelet Estimate Decreased (Normal)
[2019-03-29] MEDS ORDERED: Naloxone 0.4 MG/ML INJ IVP PRN (19:59)
[2019-03-29] MEDS ORDERED: Ondansetron ODT 4 MG TAB.RAPDIS SL PRN (19:59)
[2019-03-29] MEDS: Gabapentin 300 MG CAPSULE PO SCH (20:45)
[2019-03-29] MEDS: clonazePAM 0.5 MG TABLET PO SCH (20:46)
[2019-03-29 21:09] LABS: INR 1.1; Prothrombin Time 12.3 Seconds (9.4-12.1)
[2019-03-29 21:24] LABS: Alanine Aminotransferase 11 Units/L (7-52); Albumin 3.1 g/dL (3.5-5.7); Albumin/Globulin Ratio 0.8 (1.1-2.2); Alkaline Phosphatase 81 Units/L (34-104); Aspartate Amino Transferase 25 Units/L (13-39); BUN/Creatinine Ratio 24 (6-26); Blood Urea Nitrogen 16 mg/dL (8-23); Calcium 8.7 mg/dL (8.6-10.3); Carbon Dioxide 24 mEq/L (23-29); Chloride 107 mEq/L (98-107); Globulin 3.8 g/dL (2.4-3.5); Glucose 103 mg/dL (70-105); Osmolality,Calculated 281 (280-300); Sodium 135 mEq/L (136-145); Total Protein 6.9 g/dL (6.4-8.9); eGFR For African Americans > 60 (> 60); eGFR For Non-African Americans > 60 (> 60)
[2019-03-29] MEDS ORDERED: Furosemide 40 MG/4 ML VIAL IVP ONE (22:49)
[2019-03-29] MEDS ORDERED: Dextrose Gel 15 GM/37.5 ML TUBE PO PRN ×2 (23:03)
[2019-03-29] MEDS ORDERED: D5% in Water 1,000 ML IVC PRN (23:03)
[2019-03-29] MEDS ORDERED: *HR* Dextrose 50 % in Water (Syg) 50 ML SYRINGE IVP PRN (23:03)
[2019-03-29 23:15] LABS: Estimated Average Glucose 91 mg/dl
[2019-03-29] MEDS ORDERED: Lactulose Oral Soln 20 GM/30 ML UDC PO ONE (23:47)
[2019-03-29] MEDS: Ipratropium/Albuterol Neb 3 ML IH SCH (23:52)
[2019-03-30] MEDS: Ipratropium/Albuterol Neb 3 ML IH SCH ×4 (04:07→21:39)
[2019-03-30] MEDS: Insulin LISPRO 300 UNITS/3 ML VIAL SQ SCH ×3 (08:03→17:27)
[2019-03-30] MEDS: Lithium Carbonate 300 MG CAPSULE PO SCH (10:30)
[2019-03-30] MEDS: Furosemide 40 MG/4 ML VIAL IVP SCH ×2 (10:30→20:33)
[2019-03-30] MEDS: amLODIPine 5 MG TABLET PO SCH (10:30)
[2019-03-30] MEDS: *HR* Heparin 5,000 UNIT/ML VIAL SQ SCH ×2 (17:29→20:13)
[2019-03-30] MEDS: *HR* OxyCODONE/APAP 10/325 TABLET PO PRN (17:32)
[2019-03-30] MEDS ORDERED: Saliva Stimulant 100ml BOTTLE PO PRN (20:32)
[2019-03-30] MEDS: Lactulose Oral Soln 20 GM/30 ML UDC PO SCH (20:33)
[2019-03-30] MEDS: clonazePAM 0.5 MG TABLET PO SCH (20:34)
[2019-03-30] MEDS: Gabapentin 300 MG CAPSULE PO SCH (20:34)
[2019-03-31 01:59] LABS: BUN/Creatinine Ratio 21 (6-26); Blood Urea Nitrogen 20 mg/dL (8-23); Calcium 8.4 mg/dL (8.6-10.3); Carbon Dioxide 26 mEq/L (23-29); Chloride 100 mEq/L (98-107); Glucose 141 mg/dL (70-105); Magnesium 1.7 mg/dL (1.6-2.6); Osmolality,Calculated 283 (280-300); Phosphorous 4.6 mg/dL (2.7-4.5); Potassium 3.6 mEq/L (3.5-5.1); Sodium 134 mEq/L (136-145); eGFR For African Americans > 60 (> 60); eGFR For Non-African Americans 58 (> 60)
[2019-03-31] MEDS: Ipratropium/Albuterol Neb 3 ML IH SCH ×4 (03:16→21:32)
[2019-03-31] MEDS: *HR* OxyCODONE/APAP 10/325 TABLET PO PRN (06:07)
[2019-03-31] MEDS: *HR* Heparin 5,000 UNIT/ML VIAL SQ SCH ×3 (06:08→21:41)
[2019-03-31] MEDS: Insulin LISPRO 300 UNITS/3 ML VIAL SQ SCH ×3 (08:18→17:02)
[2019-03-31] MEDS: Lactulose Oral Soln 20 GM/30 ML UDC PO SCH ×2 (11:37→21:41)
[2019-03-31] MEDS: Furosemide 40 MG/4 ML VIAL IVP SCH ×2 (11:37→21:41)
[2019-03-31] MEDS: Lithium Carbonate 300 MG CAPSULE PO SCH (11:37)
[2019-03-31] MEDS: amLODIPine 5 MG TABLET PO SCH (11:37)
[2019-03-31] MEDS: Gabapentin 300 MG CAPSULE PO SCH (21:41)
[2019-04-01] MEDS: Ipratropium/Albuterol Neb 3 ML IH SCH ×2 (03:35→09:55)
[2019-04-01] MEDS: *HR* Heparin 5,000 UNIT/ML VIAL SQ SCH (05:22)
[2019-04-01 07:38] VITALS: BP 146/70
[2019-04-01] MEDS: Insulin LISPRO 300 UNITS/3 ML VIAL SQ SCH (07:48)
[2019-04-01] MEDS: amLODIPine 5 MG TABLET PO SCH (09:37)
[2019-04-01] MEDS: Lactulose Oral Soln 20 GM/30 ML UDC PO SCH (09:37)
[2019-04-01] MEDS: Furosemide 40 MG/4 ML VIAL IVP SCH (09:37)
[2019-04-01] MEDS: Lithium Carbonate 300 MG CAPSULE PO SCH (09:37)
== END 2019-04-01 11:12 | disposition left against medical advice (07) | DRG 194 ==
LOC: EMEROOARM 13:55 → 2NENU 13:55 → SUATTDRO 03-31 11:58
PROVIDERS: ADMIT Internal Medicine; ATTEND Internal Medicine

== ENCOUNTER 2019-08-08 16:19 | Inpatient (IN) ==
[2019-08-08 16:58] LABS: Basophils # 0.1 K/mcL (0.0-0.2); Eosinophils # 0.2 K/mcL (0.0-0.6); Eosinophils % 4.4 %; Hematocrit 35.5 % (35.3-44.9); Hemoglobin 11.4 g/dL (11.5-15.4); Immature Granulocytes % 0.4 % (0-4); Lymphocytes # 0.6 K/mcL (0.6-4.6); Lymphocytes % 10.9 %; Mean Corpuscular HGB Conc 32.1 g/dL (31.6-35.5); Mean Corpuscular Hemoglobin 36.3 pg (28.0-33.3); Mean Corpuscular Volume 113.1 fL (83.0-100.0); Mean Platelet Volume 10.1 fL (9.4-12.4); Monocytes # 0.5 K/mcL (0.0-1.3); Monocytes % 9.9 %; Neutrophils # 3.9 K/mcL (1.6-8.9); Platelet Count 154 K/mcL (140-400); Red Blood Count 3.14 M/mcL (3.82-4.97); Red Cell Distribution Width 13.8 % (11.5-14.5); Segmented Neutrophils % 73.4 %; White Blood Count 5.3 K/mcL (4.3-11.1)
[2019-08-08 17:00] LABS: Anisocytosis 1+ (Not Present); Macrocytosis Present (Not Present); Platelet Estimate Normal (Normal)
[2019-08-08 17:12] LABS: INR 1.1
[2019-08-08 17:21] LABS: Alanine Aminotransferase 17 Units/L (7-52); Albumin/Globulin Ratio 0.7 (1.1-2.2); Alkaline Phosphatase 83 Units/L (34-104); Aspartate Amino Transferase 38 Units/L (13-39); BUN/Creatinine Ratio 22 (6-26); Bilirubin,Direct 0.3 mg/dL (0.0-0.2); Bilirubin,Indirect 0.8 mg/dL (0.0-1.0); Bilirubin,Total 1.1 mg/dL (0.3-1.0); Blood Urea Nitrogen 16 mg/dL (8-23); Calcium 8.7 mg/dL (8.6-10.3); Carbon Dioxide 24 mEq/L (23-29); Chloride 103 mEq/L (98-107); Globulin 4.5 g/dL (2.4-3.5); Glucose 134 mg/dL (70-105); Lipase 54 Units/L (11-82); Osmolality,Calculated 281 (280-300); Potassium 3.7 mEq/L (3.5-5.1); Sodium 134 mEq/L (136-145); Total Protein 7.5 g/dL (6.4-8.9); Troponin I 0.03 ng/mL (< 0.04); eGFR For African Americans > 60 (> 60); eGFR For Non-African Americans > 60 (> 60)
[2019-08-08] MEDS ORDERED: Lidocaine 1% 20 ML MDV ONE (18:05)
[2019-08-08 18:12] LABS: Bilirubin,Urine Negative (Negative); Blood,Urine Negative (Negative); Clarity,Urine Clear (Clear); Color,Urine Yellow (Yellow); Glucose,Urine (UA) Normal (Normal); Ketones,Urine Negative (Negative); Leukocyte Esterase,Urine Negative (Negative); Nitrite,Urine Negative (Negative); Protein,Urine Trace mg/dL (Neg-Trace); Specific Gravity,Urine 1.016 (1.010-1.025); Urobilinogen,Urine Normal (Normal)
[2019-08-08] MEDS ORDERED: Ondansetron ODT 4 MG TAB.RAPDIS SL PRN (19:49)
[2019-08-08] MEDS ORDERED: Naloxone 0.4 MG/ML INJ IVP PRN (19:49)
[2019-08-08] MEDS ORDERED: Albumin 25% 25gram/100mL 25 GM/100 ML IV.SOLN IVPB ONE (20:23)
[2019-08-08] MEDS ORDERED: Furosemide 40 MG/4 ML VIAL IVP ONE (20:23)
[2019-08-08] MEDS: clonazePAM 0.5 MG TABLET PO SCH (20:24)
[2019-08-08] MEDS: *HR* OxyCODONE Immed Rel 5 MG TABLET PO PRN (20:24)
[2019-08-08] MEDS: Gabapentin 400 MG CAPSULE PO SCH (20:25)
[2019-08-08] MEDS: Lactulose Oral Soln 20 GM/30 ML UDC PO SCH (20:25)
[2019-08-08] MEDS ORDERED: D5% in Water 1,000 ML IVC PRN (20:26)
[2019-08-08] MEDS ORDERED: *HR* Dextrose 50 % in Water (Syg) 50 ML SYRINGE IVP PRN (20:26)
[2019-08-08] MEDS ORDERED: Dextrose Gel 15 GM/37.5 ML TUBE PO PRN ×2 (20:26)
[2019-08-08] MEDS: Insulin LISPRO 300 UNITS/3 ML VIAL SQ SCH (21:25)
[2019-08-08 21:28] LABS: RBC,Peritoneal Fluid < 0.002 M/mcL
[2019-08-08 21:29] LABS: Appearance of Peritoneal Fl CLEAR (Clear)
[2019-08-08 21:52] LABS: Amylase,Peritoneal Fluid < 10 Units/L (No Ref Range); Glucose,Peritoneal Fluid 133 mg/dL (No Ref Range); LDH,Peritoneal Fluid 39 Units/L (No Ref Range); Total Protein,Peritoneal Fluid < 3.0 g/dL
[2019-08-08] MEDS ORDERED: cefTRIAXone 1,000 MG in Water for inj. (sterile) 10 ML IVP SCH (22:00)
[2019-08-08 22:06] LABS: Basophils,Peritoneal Fluid 0 %; Eosinophils,Peritoneal Fluid 0 %
[2019-08-09] MEDS: Levothyroxine 25 MCG TABLET PO SCH (05:18)
[2019-08-09 06:37] LABS: Hematocrit 30.4 % (35.3-44.9); Mean Corpuscular HGB Conc 31.9 g/dL (31.6-35.5); Mean Corpuscular Hemoglobin 36.3 pg (28.0-33.3); Mean Corpuscular Volume 113.9 fL (83.0-100.0); Mean Platelet Volume 10.3 fL (9.4-12.4); Platelet Count 135 K/mcL (140-400); Red Blood Count 2.67 M/mcL (3.82-4.97); Red Cell Distribution Width 13.9 % (11.5-14.5); White Blood Count 4.5 K/mcL (4.3-11.1)
[2019-08-09 06:38] LABS: Hemoglobin 9.7 g/dL (11.5-15.4)
[2019-08-09 06:57] LABS: BUN/Creatinine Ratio 21 (6-26); Blood Urea Nitrogen 16 mg/dL (8-23); Calcium 8.2 mg/dL (8.6-10.3); Carbon Dioxide 27 mEq/L (23-29); Chloride 104 mEq/L (98-107); Glucose 101 mg/dL (70-105); Magnesium 1.9 mg/dL (1.6-2.6); Osmolality,Calculated 281 (280-300); Potassium 3.8 mEq/L (3.5-5.1); Sodium 135 mEq/L (136-145); eGFR For African Americans > 60 (> 60); eGFR For Non-African Americans > 60 (> 60)
[2019-08-09 07:58] LABS: % Iron Saturation 28 % (15-50); Iron 88 mcg/dL (50-170); Transferrin 227 mg/dL (203-362)
[2019-08-09] MEDS: Loratadine 10 MG TABLET PO SCH (08:14)
[2019-08-09] MEDS: Lithium Carbonate 300 MG CAPSULE PO SCH (08:14)
[2019-08-09] MEDS: Ascorbic Acid 500 MG TABLET PO SCH (08:14)
[2019-08-09] MEDS: Lactulose Oral Soln 20 GM/30 ML UDC PO SCH ×2 (08:14→20:11)
[2019-08-09 08:16] LABS: Ferritin 68 ng/mL (10-120)
[2019-08-09] MEDS: Insulin LISPRO 300 UNITS/3 ML VIAL SQ SCH ×4 (08:17→20:12)
[2019-08-09] MEDS ORDERED: Furosemide 40 MG/4 ML VIAL IVP ONE (09:42)
[2019-08-09] MEDS: *HR* OxyCODONE Immed Rel 5 MG TABLET PO PRN ×2 (12:25→20:10)
[2019-08-09 12:34] LABS: Hematocrit 30.3 % (35.3-44.9); Hemoglobin 9.8 g/dL (11.5-15.4); Mean Corpuscular HGB Conc 32.3 g/dL (31.6-35.5); Mean Corpuscular Hemoglobin 36.8 pg (28.0-33.3); Mean Corpuscular Volume 113.9 fL (83.0-100.0); Mean Platelet Volume 10.3 fL (9.4-12.4); Platelet Count 123 K/mcL (140-400); Red Blood Count 2.66 M/mcL (3.82-4.97); Red Cell Distribution Width 13.9 % (11.5-14.5); White Blood Count 4.5 K/mcL (4.3-11.1)
[2019-08-09 14:48] LABS: Adenovirus F 40/41 PCR Not detected (Not detect); Astrovirus PCR Not detected (Not detect); C.difficile Toxin A/B Gene PCR Not detected (Not detect); Campylobacter by PCR Not detected (Not detect); Cryptosporidium by PCR Not detected (Not detect); Cyclospora cayetanensis PCR Not detected (Not detect); E. coli O157 by PCR Not detected (Not detect); Entamoeba histolytica PCR Not detected (Not detect); Enteroaggregative E.coli(EAEC) Not detected (Not detect); Enteropathogenic E.coli(EPEC) Not detected (Not detect); Enterotoxigenic E.coli (ETEC) Not detected (Not detect); Giardia lamblia PCR Not detected (Not detect); Norovirus GI/GII PCR Not detected (Not detect); Plesiomonas shigelloides PCR Not detected (Not detect); Rotavirus A PCR Not detected (Not detect); Salmonella PCR Not detected (Not detect); Sapovirus PCR Not detected (Not detect); Shig/EnteroinvasiveE coli EIEC Not detected (Not detect); Shigalike tox-prod E coli STEC Not detected (Not detect); Vibrio PCR Not detected (Not detect); Vibrio cholerae PCR Not detected (Not detect); Yersinia enterocolitica PCR Not detected (Not detect)
[2019-08-09] MEDS: clonazePAM 0.5 MG TABLET PO SCH (20:10)
[2019-08-09] MEDS: Gabapentin 400 MG CAPSULE PO SCH (20:10)
[2019-08-09] MEDS ORDERED: Furosemide 40 MG/4 ML VIAL IVP SCH (21:00)
[2019-08-10] MEDS: Levothyroxine 25 MCG TABLET PO SCH (05:15)
[2019-08-10] MEDS: *HR* OxyCODONE Immed Rel 5 MG TABLET PO PRN ×2 (05:15→08:59)
[2019-08-10 07:25] LABS: Hematocrit 31.7 % (35.3-44.9); Hemoglobin 10.1 g/dL (11.5-15.4); Mean Corpuscular HGB Conc 31.9 g/dL (31.6-35.5); Mean Corpuscular Hemoglobin 36.7 pg (28.0-33.3); Mean Corpuscular Volume 115.3 fL (83.0-100.0); Mean Platelet Volume 10.2 fL (9.4-12.4); Platelet Count 135 K/mcL (140-400); Red Blood Count 2.75 M/mcL (3.82-4.97); White Blood Count 5.9 K/mcL (4.3-11.1)
[2019-08-10 07:40] LABS: Calcium 8.2 mg/dL (8.6-10.3); Potassium 4.1 mEq/L (3.5-5.1)
[2019-08-10 08:00] LABS: INR 1.2; Prothrombin Time 13.5 Seconds (9.4-12.1)
[2019-08-10] MEDS: Lithium Carbonate 300 MG CAPSULE PO SCH (08:59)
[2019-08-10] MEDS: Furosemide 20 MG/2 ML VIAL IVP SCH ×2 (08:59→20:15)
[2019-08-10] MEDS: Lactulose Oral Soln 20 GM/30 ML UDC PO SCH ×2 (09:00→20:17)
[2019-08-10] MEDS: Ascorbic Acid 500 MG TABLET PO SCH (09:00)
[2019-08-10] MEDS: Loratadine 10 MG TABLET PO SCH (09:00)
[2019-08-10] MEDS: Insulin LISPRO 300 UNITS/3 ML VIAL SQ SCH ×4 (09:20→21:42)
[2019-08-10 11:50] LABS: RBC,Peritoneal Fluid < 0.002 M/mcL
[2019-08-10] MEDS: Albumin 25% 25gram/100mL 25 GM/100 ML IV.SOLN IVC SCH ×2 (12:46→17:37)
[2019-08-10 12:52] LABS: Appearance of Peritoneal Fl CLEAR (Clear)
[2019-08-10] MEDS ORDERED: Albumin 25% 25gram/100mL 25 GM/100 ML IV.SOLN IVPB ONE ×2 (18:56→21:00)
[2019-08-10] MEDS: clonazePAM 0.5 MG TABLET PO SCH (20:15)
[2019-08-10] MEDS: Gabapentin 400 MG CAPSULE PO SCH (20:15)
[2019-08-11 02:32] LABS: Fluid Source for Albumin ASCITES
[2019-08-11] MEDS: *HR* OxyCODONE Immed Rel 5 MG TABLET PO PRN (03:14)
[2019-08-11] MEDS: Levothyroxine 25 MCG TABLET PO SCH (05:32)
[2019-08-11] MEDS: Insulin LISPRO 300 UNITS/3 ML VIAL SQ SCH ×4 (07:17→21:05)
[2019-08-11] MEDS: Lactulose Oral Soln 20 GM/30 ML UDC PO SCH ×2 (07:21→21:04)
[2019-08-11] MEDS: Loratadine 10 MG TABLET PO SCH (07:23)
[2019-08-11] MEDS: Lithium Carbonate 300 MG CAPSULE PO SCH (07:24)
[2019-08-11] MEDS: Furosemide 20 MG/2 ML VIAL IVP SCH (07:24)
[2019-08-11] MEDS: Ascorbic Acid 500 MG TABLET PO SCH (07:24)
[2019-08-11 07:47] LABS: Hematocrit 28.8 % (35.3-44.9); Hemoglobin 9.4 g/dL (11.5-15.4); Mean Corpuscular HGB Conc 32.6 g/dL (31.6-35.5); Mean Corpuscular Hemoglobin 36.2 pg (28.0-33.3); Mean Corpuscular Volume 110.8 fL (83.0-100.0); Mean Platelet Volume 10.7 fL (9.4-12.4); Platelet Count 131 K/mcL (140-400); White Blood Count 5.3 K/mcL (4.3-11.1)
[2019-08-11 08:04] LABS: Calcium 8.3 mg/dL (8.6-10.3); Magnesium 2.1 mg/dL (1.6-2.6); Potassium 4.6 mEq/L (3.5-5.1)
[2019-08-11] MEDS: Furosemide 40 MG/4 ML VIAL IVP SCH (21:04)
[2019-08-11] MEDS: clonazePAM 0.5 MG TABLET PO SCH (21:04)
[2019-08-11] MEDS: Gabapentin 400 MG CAPSULE PO SCH (21:04)
[2019-08-12] MEDS: *HR* Enoxaparin 40 MG/0.4 ML SYRINGE SQ SCH (05:33)
[2019-08-12] MEDS: Levothyroxine 25 MCG TABLET PO SCH (05:33)
[2019-08-12 06:45] LABS: BUN/Creatinine Ratio 26 (6-26); Blood Urea Nitrogen 24 mg/dL (8-23); Calcium 8.5 mg/dL (8.6-10.3); Carbon Dioxide 26 mEq/L (23-29); Chloride 106 mEq/L (98-107); Glucose 81 mg/dL (70-105); Osmolality,Calculated 287 (280-300); Sodium 137 mEq/L (136-145); eGFR For African Americans > 60 (> 60); eGFR For Non-African Americans 60 (> 60)
[2019-08-12] MEDS: Insulin LISPRO 300 UNITS/3 ML VIAL SQ SCH ×4 (08:59→20:22)
[2019-08-12] MEDS: Lithium Carbonate 300 MG CAPSULE PO SCH (08:59)
[2019-08-12] MEDS: Ascorbic Acid 500 MG TABLET PO SCH (08:59)
[2019-08-12] MEDS: *HR* OxyCODONE Immed Rel 5 MG TABLET PO PRN (09:00)
[2019-08-12] MEDS: Lactulose Oral Soln 20 GM/30 ML UDC PO SCH ×2 (09:00→20:32)
[2019-08-12] MEDS: Furosemide 40 MG/4 ML VIAL IVP SCH ×2 (09:00→20:32)
[2019-08-12] MEDS: Loratadine 10 MG TABLET PO SCH (09:00)
[2019-08-12] MEDS: clonazePAM 0.5 MG TABLET PO SCH (20:32)
[2019-08-12] MEDS: Gabapentin 400 MG CAPSULE PO SCH (20:32)
[2019-08-13 04:35] LABS: BUN/Creatinine Ratio 22 (6-26); Blood Urea Nitrogen 19 mg/dL (8-23); Calcium 8.7 mg/dL (8.6-10.3); Carbon Dioxide 29 mEq/L (23-29); Chloride 104 mEq/L (98-107); Glucose 91 mg/dL (70-105); Osmolality,Calculated 288 (280-300); Potassium 3.8 mEq/L (3.5-5.1); Sodium 138 mEq/L (136-145); eGFR For African Americans > 60 (> 60); eGFR For Non-African Americans > 60 (> 60)
[2019-08-13] MEDS: Levothyroxine 25 MCG TABLET PO SCH (05:25)
[2019-08-13] MEDS: *HR* Enoxaparin 40 MG/0.4 ML SYRINGE SQ SCH (05:25)
[2019-08-13] MEDS: Insulin LISPRO 300 UNITS/3 ML VIAL SQ SCH ×4 (07:54→19:48)
[2019-08-13] MEDS: Ascorbic Acid 500 MG TABLET PO SCH (08:19)
[2019-08-13] MEDS: Loratadine 10 MG TABLET PO SCH (08:19)
[2019-08-13] MEDS: Lactulose Oral Soln 20 GM/30 ML UDC PO SCH ×2 (08:20→19:40)
[2019-08-13] MEDS: Lithium Carbonate 300 MG CAPSULE PO SCH (08:20)
[2019-08-13] MEDS: Furosemide 40 MG/4 ML VIAL IVP SCH ×2 (08:23→19:40)
[2019-08-13] MEDS: clonazePAM 0.5 MG TABLET PO SCH (19:41)
[2019-08-13] MEDS: Gabapentin 400 MG CAPSULE PO SCH (19:41)
[2019-08-14 03:01] LABS: Hematocrit 30.6 % (35.3-44.9); Hemoglobin 9.9 g/dL (11.5-15.4); Mean Corpuscular HGB Conc 32.4 g/dL (31.6-35.5); Mean Corpuscular Hemoglobin 36.7 pg (28.0-33.3); Mean Corpuscular Volume 113.3 fL (83.0-100.0); Mean Platelet Volume 10.6 fL (9.4-12.4); Platelet Count 123 K/mcL (140-400); Red Cell Distribution Width 13.9 % (11.5-14.5); White Blood Count 4.2 K/mcL (4.3-11.1)
[2019-08-14 03:07] LABS: INR 1.3; Prothrombin Time 14.4 Seconds (9.4-12.1)
[2019-08-14 03:21] LABS: Alanine Aminotransferase 9 Units/L (7-52); Albumin 2.9 g/dL (3.5-5.7); Albumin/Globulin Ratio 0.9 (1.1-2.2); Alkaline Phosphatase 59 Units/L (34-104); Aspartate Amino Transferase 23 Units/L (13-39); BUN/Creatinine Ratio 19 (6-26); Bilirubin,Direct 0.1 mg/dL (0.0-0.2); Bilirubin,Indirect 0.6 mg/dL (0.0-1.0); Bilirubin,Total 0.7 mg/dL (0.3-1.0); Blood Urea Nitrogen 19 mg/dL (8-23); Calcium 8.7 mg/dL (8.6-10.3); Carbon Dioxide 29 mEq/L (23-29); Chloride 105 mEq/L (98-107); Globulin 3.2 g/dL (2.4-3.5); Glucose 115 mg/dL (70-105); Magnesium 1.7 mg/dL (1.6-2.6); Osmolality,Calculated 287 (280-300); Potassium 3.8 mEq/L (3.5-5.1); Sodium 137 mEq/L (136-145); Total Protein 6.1 g/dL (6.4-8.9); eGFR For African Americans > 60 (> 60); eGFR For Non-African Americans 55 (> 60)
[2019-08-14] MEDS: Levothyroxine 25 MCG TABLET PO SCH (05:18)
[2019-08-14] MEDS: *HR* Enoxaparin 40 MG/0.4 ML SYRINGE SQ SCH (05:18)
[2019-08-14] MEDS: Insulin LISPRO 300 UNITS/3 ML VIAL SQ SCH ×4 (08:09→22:02)
[2019-08-14] MEDS: Lactulose Oral Soln 20 GM/30 ML UDC PO SCH ×2 (08:43→22:01)
[2019-08-14] MEDS: Ascorbic Acid 500 MG TABLET PO SCH (08:44)
[2019-08-14] MEDS: Furosemide 40 MG/4 ML VIAL IVP SCH ×2 (08:44→22:02)
[2019-08-14] MEDS: Lithium Carbonate 300 MG CAPSULE PO SCH (08:45)
[2019-08-14] MEDS: Loratadine 10 MG TABLET PO SCH (08:45)
[2019-08-14] MEDS: Gabapentin 400 MG CAPSULE PO SCH (22:00)
[2019-08-14] MEDS: clonazePAM 0.5 MG TABLET PO SCH (23:41)
[2019-08-15 01:20] LABS: Hematocrit 31.4 % (35.3-44.9); Hemoglobin 10.3 g/dL (11.5-15.4); Mean Corpuscular HGB Conc 32.8 g/dL (31.6-35.5); Mean Corpuscular Hemoglobin 37.3 pg (28.0-33.3); Mean Corpuscular Volume 113.8 fL (83.0-100.0); Mean Platelet Volume 10.9 fL (9.4-12.4); Platelet Count 128 K/mcL (140-400); Red Blood Count 2.76 M/mcL (3.82-4.97); Red Cell Distribution Width 13.7 % (11.5-14.5); White Blood Count 4.2 K/mcL (4.3-11.1)
[2019-08-15 01:41] LABS: BUN/Creatinine Ratio 18 (6-26); Blood Urea Nitrogen 17 mg/dL (8-23); Calcium 8.5 mg/dL (8.6-10.3); Carbon Dioxide 30 mEq/L (23-29); Chloride 104 mEq/L (98-107); Glucose 94 mg/dL (70-105); Osmolality,Calculated 289 (280-300); Sodium 139 mEq/L (136-145); eGFR For African Americans > 60 (> 60); eGFR For Non-African Americans 57 (> 60)
[2019-08-15] MEDS: Levothyroxine 25 MCG TABLET PO SCH (05:21)
[2019-08-15] MEDS: *HR* Enoxaparin 40 MG/0.4 ML SYRINGE SQ SCH (05:21)
[2019-08-15] MEDS: Insulin LISPRO 300 UNITS/3 ML VIAL SQ SCH ×4 (07:34→21:39)
[2019-08-15] MEDS: Lactulose Oral Soln 20 GM/30 ML UDC PO SCH ×2 (08:54→21:36)
[2019-08-15] MEDS: Loratadine 10 MG TABLET PO SCH (08:54)
[2019-08-15] MEDS: Ascorbic Acid 500 MG TABLET PO SCH (08:54)
[2019-08-15] MEDS: Lithium Carbonate 300 MG CAPSULE PO SCH (08:54)
[2019-08-15] MEDS: Furosemide 40 MG/4 ML VIAL IVP SCH (08:55)
[2019-08-15] MEDS: Torsemide 20 MG TABLET PO SCH (12:10)
[2019-08-15] MEDS: *HR* OxyCODONE Immed Rel 5 MG TABLET PO PRN (13:22)
[2019-08-15] MEDS ORDERED: Torsemide 20 MG TABLET PO SCH (21:00)
[2019-08-15] MEDS: Gabapentin 400 MG CAPSULE PO SCH (21:36)
[2019-08-15] MEDS: clonazePAM 0.5 MG TABLET PO SCH (21:36)
[2019-08-16] MEDS: Levothyroxine 25 MCG TABLET PO SCH (06:02)
[2019-08-16] MEDS: *HR* Enoxaparin 40 MG/0.4 ML SYRINGE SQ SCH (06:02)
[2019-08-16 06:43] VITALS: BP 113/64
[2019-08-16] MEDS: Insulin LISPRO 300 UNITS/3 ML VIAL SQ SCH (07:15)
[2019-08-16 08:13] LABS: Calcium 8.3 mg/dL (8.6-10.3); Potassium 4.3 mEq/L (3.5-5.1)
[2019-08-16] MEDS: Ascorbic Acid 500 MG TABLET PO SCH (10:31)
[2019-08-16] MEDS: Torsemide 20 MG TABLET PO SCH (10:32)
[2019-08-16] MEDS: Lithium Carbonate 300 MG CAPSULE PO SCH (10:32)
[2019-08-16] MEDS: Loratadine 10 MG TABLET PO SCH (10:32)
[2019-08-16] MEDS: Lactulose Oral Soln 20 GM/30 ML UDC PO SCH (10:32)
== END 2019-08-16 11:49 | disposition home health service (06) | DRG 423 ==
LOC: EMEROOARM 16:19 → 3BNU 16:19 → SUATTDRO 08-10 15:20
PROVIDERS: ADMIT Internal Medicine; ATTEND Internal Medicine